=== PATIENT | female | born 1950 | race Caucasian/White ===

== ENCOUNTER 2020-04-27 08:30 | Observation (INO) ==
[~2020-04-27 08:30] MED LIST: Buffered Lidocaine 1% SYRIN 1 ml INTRADERM ONE; Famotidine IV 10 MG/ML 2 ml VIAL (20 mg) IV ONE; Lactated Ringers 1000 ml BAG 1,000 ML IV SCH
[2020-04-27] MEDS ORDERED: Buffered Lidocaine 1% SYRIN 1 ml INTRADERM ONE (09:05)
[2020-04-27] MEDS ORDERED: Famotidine IV 10 MG/ML 2 ml VIAL (20 mg) ONE (09:05)
[2020-04-27] MEDS ORDERED: ceFAZolin 2 GM PREMIX 2 GM/50 ML BAG ONE (09:25)
[2020-04-27] MEDS ORDERED: Midazolam 5 mg/5 ml VIAL 1 mg/ml 5 ml VIAL (5 mg) ONE (09:31)
[2020-04-27] MEDS ORDERED: Ketamine HCL 50 mg/ml 10 ml VIAL (500 MG) ONE ×2 (09:36→13:09)
[2020-04-27] MEDS ORDERED: fentaNYL 100 mcg/2 ml 50 MCG/ML VIAL ONE (09:36)
[2020-04-27] MEDS ORDERED: Propofol 10 MG/ML 20 ML BTL ONE ×2 (10:33→11:31)
[2020-04-27] MEDS ORDERED: Phenylephrine 40 mcg/mL 10mL (400mcg) SYRINGE ONE (10:33)
[2020-04-27] MEDS ORDERED: Phenylephrine IV 10 MG/ML 1 ml VIAL ONE (10:33)
[2020-04-27] MEDS ORDERED: Dexamethasone IV 4 MG/ML VIAL 1 ml VIAL ONE (10:33)
[2020-04-27] MEDS ORDERED: Ondansetron 4 mg VIAL 2 MG/ML 2 ml VIAL ONE (10:33)
[2020-04-27] MEDS ORDERED: diPHENhydraMINE IV 50 MG/ML 1 ml VIAL (BENADRYL) IV PRN (10:55)
[2020-04-27] MEDS ORDERED: Lactulose 30 ml UDC PO PRN (10:55)
[2020-04-27] MEDS ORDERED: Magnesium Hydroxide LIQ 30 ML UDC PO PRN (10:55)
[2020-04-27] MEDS ORDERED: Ondansetron ODT 4 mg TAB 4 MG TAB PO PRN (10:55)
[2020-04-27] MEDS ORDERED: Ondansetron 4 mg VIAL 2 MG/ML 2 ml VIAL IV PRN (10:55)
[2020-04-27] MEDS ORDERED: diPHENhydraMINE 25 mg TAB PO PRN (10:55)
[2020-04-27] MEDS ORDERED: Morphine 2 MG/ML SYRINGE IV PRN (10:55)
[2020-04-27] MEDS ORDERED: DiMENhydriNATE IV 50 mg/ml 1 ml VIAL IV PUSH PRN (10:58)
[2020-04-27] MEDS ORDERED: Naloxone 0.4 mg VIAL 0.4 mg/ml 1 ml VIAL IV PRN (10:58)
[2020-04-27] MEDS ORDERED: oxyCODONE/Acetamin 5/325 mg TAB PO PRN (10:58)
[2020-04-27] MEDS ORDERED: HYDROmorphone 1 MG/1 ML SYRINGE IV PRN (10:58)
[2020-04-27] MEDS ORDERED: ROPIVACAINE 5 MG/ML 30 ML BTL (0.5%) ONE (11:28)
[2020-04-27] MEDS ORDERED: Dextrose 50% Syringe 50 ml 25 GM/50 ML SYRINGE IV PUSH PRN (12:25)
[2020-04-27] MEDS ORDERED: oxyCODONE/Acetamin 5/325 mg TAB ONE (12:58)
[2020-04-27] MEDS: Lactated Ringers 1000 ml BAG 1,000 ML IV SCH ×2 (13:40→23:45)
[2020-04-27] MEDS ORDERED: EPHEDrine (Pressors) 50 MG/ML VIAL ONE (14:25)
[2020-04-27] MEDS: ceFAZolin 1 GM ADVAN 1 GM in NS 0.9% 50 ML 50 ML IVPB SCH (16:23)
[2020-04-27] MEDS: Magnesium Hydroxide LIQ 30 ML UDC PO SCH (20:59)
[2020-04-27] MEDS ORDERED: Nortriptyline 25 mg TAB PO SCH (21:00)
[2020-04-27] MEDS: Potassium Chlor 10 meq TAB PO SCH (21:01)
[2020-04-28] MEDS: oxyCODONE/Acetamin 5/325 mg TAB PO PRN ×3 (00:09→14:00)
[2020-04-28] MEDS: ceFAZolin 1 GM ADVAN 1 GM in NS 0.9% 50 ML 50 ML IVPB SCH ×2 (00:10→08:08)
[2020-04-28 04:51] LABS: Hematocrit 34 % (35-47); Hemoglobin 11.7 g/dL (12.0-16.0); Mean Platelet Volume 7.3 fL (7.4-10.4); Platelet Count 239 10^3/uL (150-450)
[2020-04-28 05:08] LABS: BUN/Creatinine Ratio 20.5 (8-20); Calcium 8.3 mg/dL (8.6-10.3); EGFR African American 95.9 (>60); EGFR Non-African American 79.3 (>60); Potassium 4.2 mmol/L (3.5-5.0)
[2020-04-28] MEDS ORDERED: IRBESARTAN 75 MG PO SCH (09:00)
[2020-04-28] MEDS ORDERED: Vitamin THERAPEUTIC TAB PO SCH (09:00)
[2020-04-28] MEDS: Magnesium Hydroxide LIQ 30 ML UDC PO SCH (10:14)
[2020-04-28] MEDS: Potassium Chlor 10 meq TAB PO SCH (10:14)
[2020-04-28 12:11] VITALS: BP 96/60
== END 2020-04-28 13:25 | disposition home or self-care (01) ==
LOC: INTOOBSV 08:30 → AA 08:30 → SSU 10:55
PROVIDERS: ADMIT Orthopaedic Surgery Adult Reconstructive Orthopaedic Surgery; ATTEND Orthopaedic Surgery Adult Reconstructive Orthopaedic Surgery

== ENCOUNTER 2021-10-29 05:38 | Inpatient (IN) ==
[2021-10-29] MEDS ORDERED: Buffered Lidocaine 1% SYRIN 1 ml INTRADERM ONE (06:00)
[2021-10-29] MEDS ORDERED: Lactated Ringers 1000 ml BAG 1,000 ML IV SCH (06:00)
[2021-10-29] MEDS ORDERED: ceFAZolin 2 GM in NS PREMIX 2 GM/100 ML BAG IVPB ONE (06:52)
[2021-10-29] MEDS ORDERED: Dexmedetomidine 200 mcg/2 ml 2 ml VIAL (200 mcg) ONE (06:52)
[2021-10-29] MEDS ORDERED: fentaNYL 100 mcg/2 ml 50 MCG/ML VIAL ONE (06:52)
[2021-10-29] MEDS ORDERED: Midazolam 2 mg/2 ml VIAL 1 mg/ml 2 ml VIAL (2 mg) ONE (06:53)
[2021-10-29] MEDS ORDERED: Lidocaine 2% PF 5 ML VIAL ONE (06:55)
[2021-10-29] MEDS ORDERED: Propofol 10 MG/ML 20 ML BTL ONE (06:55)
[2021-10-29] MEDS ORDERED: Ondansetron 4 mg VIAL 2 MG/ML 2 ml VIAL ONE (06:55)
[2021-10-29] MEDS ORDERED: Rocuronium 50 mg VIAL 10 mg/ml 5 ml VIAL (50 mg) ONE ×2 (06:55→09:13)
[2021-10-29] MEDS ORDERED: Dexamethasone IV 4 MG/ML VIAL 1 ml VIAL ONE (06:55)
[2021-10-29] MEDS ORDERED: Vancomycin 1,000 MG VIAL ONE (06:56)
[2021-10-29] MEDS ORDERED: ROPIVACAINE 5 MG/ML 30 ML BTL (0.5%) ONE (06:56)
[2021-10-29] MEDS ORDERED: Phenylephrine IV 10 MG/ML 1 ml VIAL ONE (08:14)
[2021-10-29] MEDS ORDERED: Phenylephrine 40 mcg/mL 10mL (400mcg) SYRINGE ONE (08:24)
[2021-10-29] MEDS ORDERED: oxyCODONE/Acetamin 5/325 mg TAB PO PRN (08:44)
[2021-10-29] MEDS ORDERED: fentaNYL 100 mcg/2 ml 50 MCG/ML VIAL IV PRN (08:44)
[2021-10-29] MEDS ORDERED: DiMENhydriNATE IV 50 mg/ml 1 ml VIAL IV PUSH PRN (08:44)
[2021-10-29] MEDS ORDERED: Ondansetron 4 mg VIAL 2 MG/ML 2 ml VIAL IV PRN ×2 (08:44→11:26)
[2021-10-29] MEDS ORDERED: Naloxone 0.4 mg VIAL 0.4 mg/ml 1 ml VIAL IV PRN (08:44)
[2021-10-29] MEDS ORDERED: diPHENhydraMINE 25 mg TAB PO PRN (11:26)
[2021-10-29] MEDS ORDERED: Magnesium Hydroxide LIQ 30 ML UDC PO PRN (11:26)
[2021-10-29] MEDS ORDERED: Ondansetron ODT 4 mg TAB 4 MG TAB PO PRN (11:26)
[2021-10-29] MEDS ORDERED: diPHENhydraMINE IV 50 MG/ML 1 ml VIAL (BENADRYL) IV PRN (11:26)
[2021-10-29] MEDS ORDERED: Lactulose 30 ml UDC PO PRN (11:26)
[2021-10-29] MEDS ORDERED: Nystatin TOP POWDER 15 GM BTL TOPICAL PRN (11:39)
[2021-10-29] MEDS ORDERED: ceFAZolin 1 GM ADVAN 1 GM in NS 0.9% 50 ML 50 ML IVPB SCH ×2 (12:00→14:00)
[2021-10-29] MEDS ORDERED: Dextrose 50% Syringe 50 ml 25 GM/50 ML SYRINGE IV PUSH PRN (12:39)
[2021-10-29] MEDS: Lactated Ringers 1000 ml BAG 1,000 ML IV SCH ×2 (12:59→23:09)
[2021-10-29] MEDS: Senna TAB 8.6 mg TAB PO SCH ×2 (14:27→20:09)
[2021-10-29] MEDS: ceFAZolin 1 GM ADVAN 1 GM in NS 0.9% 50 ML 50 ML IVPB SCH (15:38)
[2021-10-29] MEDS: Potassium Chlor 10 meq TAB PO SCH (20:10)
[2021-10-29] MEDS: Magnesium Hydroxide LIQ 30 ML UDC PO SCH (20:10)
[2021-10-29] MEDS ORDERED: Aspirin EC 81 mg TAB.EC (enteric coated) PO SCH (21:00)
[2021-10-30] MEDS: ceFAZolin 1 GM ADVAN 1 GM in NS 0.9% 50 ML 50 ML IVPB SCH ×2 (00:34→08:01)
[2021-10-30 05:51] LABS: Hematocrit 35 % (35-47); Hemoglobin 11.9 g/dL (12.0-16.0); Mean Platelet Volume 7.3 fL (7.4-10.4); Platelet Count 238 10^3/uL (150-450)
[2021-10-30 06:13] LABS: Calcium 8.3 mg/dL (8.6-10.3); Potassium 4.3 mmol/L (3.5-5.0); eGFR CKD-EPI 84.2 (>60)
[2021-10-30] MEDS: Potassium Chlor 10 meq TAB PO SCH (08:02)
[2021-10-30] MEDS: Senna TAB 8.6 mg TAB PO SCH (08:02)
[2021-10-30] MEDS: Magnesium Hydroxide LIQ 30 ML UDC PO SCH (08:03)
[2021-10-30] MEDS ORDERED: Vitamin THERAPEUTIC TAB PO SCH (09:00)
[2021-10-30] MEDS ORDERED: METOPROLOL SUCCINATE 100 MG PO SCH (09:00)
[2021-10-30 11:59] VITALS: BP 93/53
[2021-10-31] MEDS ORDERED: ESTRADIOL 10 MCG VAGINAL SCH (09:00)
== END 2021-10-30 13:15 | disposition home or self-care (01) | DRG 483 ==
LOC: AA 05:38 → INTOOBSV 05:38 → SSU 13:00
PROVIDERS: ADMIT Orthopaedic Surgery; ATTEND Orthopaedic Surgery